=== PATIENT | female | born 1995 | race Caucasian/White ===

== ENCOUNTER 2018-05-25 07:49 | Inpatient (IN) | payer OTHER ==
[2018-05-25] MEDS: NS 1,000 ML IV ×3 (09:00→20:47)
[2018-05-25 09:03] LABS: BASO # 0.1 10^3/uL (0.0-0.2); BASO % 1.3 % (0.0-1.0); EOS # 0.1 10^3/uL (0.0-0.50); EOS % 2.5 % (0.0-3.0); HEMATOCRIT 40.3 % (36.0-47.0); HEMOGLOBIN 13.4 g/dl (12.0-15.5); IMMATURE GRANULOCYTE % 0.4 % (0-3.0); LYMPH # 1.7 10^3/uL (1.5-6.5); LYMPH % 32.9 % (24.0-44.0); MEAN CORPUSCULAR HEMOGLOBIN 30.9 pg (27.0-33.0); MEAN CORPUSCULAR HGB CONC 33.3 g/dl (32.0-36.5); MEAN CORPUSCULAR VOLUME 93.1 fl (80.0-96.0); MONO # 0.3 10^3/uL (0.0-0.8); MONO % 6.1 % (0.0-5.0); NEUTROPHILS % 56.8 % (36.0-66.0); PLATELET COUNT, AUTOMATED 238 10^3/uL (150-450); RED BLOOD COUNT 4.33 10^6/uL (4.00-5.40); RED CELL DISTRIBUTION WIDTH 12.7 % (11.5-14.5); WHITE BLOOD COUNT 5.2 10^3/uL (4.0-10.0)
[2018-05-25 09:12] LABS: CPK CREATINE PHOSPHOKINASE 126 U/L (26-192); MB/CK RELATIVE INDEX 0.95 (< OR =4); TROPONIN I < 0.02 NG/ML (< 0.10)
[2018-05-25 09:19] LABS: CONTROL LINE HCG INT CTR LINE PRESENT; HCG, SERUM QUALITATIVE NEGATIVE (NEGATIVE)
[2018-05-25 09:50] LABS: ALBUMIN 4.6 GM/DL (3.2-5.2); ALBUMIN/GLOBULIN RATIO 1.39 (1.00-1.93); ALKALINE PHOSPHATASE 71 U/L (45-117); ALT/SGPT 23 U/L (12-78); ANION GAP 8 MEQ/L (8-16); AST/SGOT 18 U/L (7-37); BILIRUBIN,DIRECT 0.1 MG/DL (0.0-0.2); BILIRUBIN,TOTAL 0.5 MG/DL (0.2-1.0); BLOOD UREA NITROGEN 22 MG/DL (7-18); CALCIUM LEVEL 8.8 MG/DL (8.5-10.1); CARBON DIOXIDE LEVEL 24 MEQ/L (21-32); CHLORIDE LEVEL 107 MEQ/L (98-107); GLOMERULAR FILTRATION RATE 58.8 (>60); GLUCOSE, FASTING 81 MG/DL (70-100); LIPASE 191 U/L (73-393); MAGNESIUM LEVEL 2.3 MG/DL (1.8-2.4); POTASSIUM SERUM 3.8 MEQ/L (3.5-5.1); SODIUM LEVEL 139 MEQ/L (136-145); TOTAL PROTEIN 7.9 GM/DL (6.4-8.2)
[2018-05-25 10:12] LABS: KETONE, URINE AUTO RFX NEGATIVE (NEGATIVE); MUCUS, URINE RFX SMALL (NEGATIVE); NITRITE, URINE AUTO RFX NEGATIVE (NEGATIVE); RBC, URINE AUTO RFX 0 /HPF (0-3); SPECIFIC GRAVITY UR AUTO RFX 1.023 (1.002-1.035); SQUAM EPITHELIAL CELL UR AURFX 7 /HPF (0-6)
[2018-05-25] MEDS ORDERED: GLUCOSE 4 GM CHEW TABLET PO (10:15)
[2018-05-25] MEDS ORDERED: GLUCAGON FOR INJ 1 MG VIAL (J1610) SC (10:15)
[2018-05-25] MEDS ORDERED: DEXTROSE 50% 50 ML SYRINGE IV (10:15)
[2018-05-25 10:16] LABS: D-DIMER QUANT < 270 ng/ml (<500)
[2018-05-25 10:55] LABS: AMPHETAMINES LEVEL URINE POSITIVE (NEGATIVE); BARBITURATES URINE NEGATIVE (NEGATIVE); BENZODIAZEPINES URINE NEGATIVE (NEGATIVE); CANNABINOIDS URINE NEGATIVE (NEGATIVE); COCAINE METABOLITE URINE NEGATIVE (NEGATIVE); METHADONE URINE NEGATIVE (NEGATIVE); OPIATES URINE NEGATIVE (NEGATIVE); PHENCYCLIDINE URINE NEGATIVE (NEGATIVE)
[2018-05-25] MEDS ORDERED: ISOVUE-370 76% 100ML VIAL (Q9967) As Ordered (10:56)
[2018-05-25 11:10] LABS: PROTHROMBIN TIME 13.3 SECONDS (12.1-14.4)
[2018-05-25 11:11] LABS: PARTIAL THROMBOPLASTIN TIME 27.8 SECONDS (25.4-37.6)
[2018-05-25 11:14] LABS: LEUKOCYTE ESTERASE UR AUTO RFX 2+ (NEGATIVE); WBC, URINE AUTO RFX 18 /HPF (0-3)
[2018-05-25] MEDS: GI COCKTAIL 50ML BTL(HYOSCYAMINE/MAALOX/LIDOCAINE VISCOUS)(1:3:1) PO (11:59)
[2018-05-25] MEDS: D5W/0.45% SODIUM CHLORIDE 1,000 ML IV (13:09)
[2018-05-25 16:47] LABS: CK-MB VALUE MASS < 1.0 NG/ML (<3.6); CPK CREATINE PHOSPHOKINASE 89 U/L (26-192); MB/CK RELATIVE INDEX 1.12 (< OR =4); TROPONIN I < 0.02 NG/ML (< 0.10)
[2018-05-25] MEDS: ONDANSETRON 4MG/2ML VIAL (J2405) IV (20:12)
[2018-05-25] MEDS: ACETAMINOPHEN TAB 650MG DOSE (2X325MG) PO (21:08)
[2018-05-26 00:11] LABS: CK-MB VALUE MASS < 1.0 NG/ML (<3.6); CPK CREATINE PHOSPHOKINASE 74 U/L (26-192); MB/CK RELATIVE INDEX 1.35 (< OR =4); TROPONIN I < 0.02 NG/ML (< 0.10)
[2018-05-26] MEDS: NS 1,000 ML IV (05:12)
[2018-05-26] MEDS ORDERED: COSYNTROPIN 0.25 MG/ML VIAL (J0834 PER 0.25MG) IV (06:00)
[2018-05-26 06:51] LABS: BASO % 0.8 % (0.0-1.0); EOS # 0.1 10^3/uL (0.0-0.50); EOS % 3.9 % (0.0-3.0); HEMATOCRIT 33.1 % (36.0-47.0); LYMPH % 55.2 % (24.0-44.0); MEAN CORPUSCULAR HEMOGLOBIN 30.5 pg (27.0-33.0); MEAN CORPUSCULAR HGB CONC 31.7 g/dl (32.0-36.5); MEAN CORPUSCULAR VOLUME 96.2 fl (80.0-96.0); MONO # 0.2 10^3/uL (0.0-0.8); MONO % 5.1 % (0.0-5.0); NEUTROPHILS # 1.2 10^3/uL (1.8-7.7); PLATELET COUNT, AUTOMATED 174 10^3/uL (150-450); RED BLOOD COUNT 3.44 10^6/uL (4.00-5.40); WHITE BLOOD COUNT 3.6 10^3/uL (4.0-10.0)
[2018-05-26 07:05] LABS: HEMOGLOBIN 10.5 g/dl (12.0-15.5)
[2018-05-26 07:14] LABS: ANION GAP 5 MEQ/L (8-16); BLOOD UREA NITROGEN 17 MG/DL (7-18); CALCIUM LEVEL 7.4 MG/DL (8.5-10.1); CARBON DIOXIDE LEVEL 24 MEQ/L (21-32); CHLORIDE LEVEL 118 MEQ/L (98-107); CREATININE FOR GFR 0.97 MG/DL (0.55-1.30); GLOMERULAR FILTRATION RATE > 60.0 (>60); GLUCOSE, FASTING 81 MG/DL (70-100); MAGNESIUM LEVEL 1.9 MG/DL (1.8-2.4); POTASSIUM SERUM 4.6 MEQ/L (3.5-5.1); SODIUM LEVEL 147 MEQ/L (136-145)
[2018-05-26 07:21] LABS: CK-MB VALUE MASS < 1.0 NG/ML (<3.6); CPK CREATINE PHOSPHOKINASE 71 U/L (26-192); MB/CK RELATIVE INDEX 1.41 (< OR =4); TROPONIN I < 0.02 NG/ML (< 0.10)
[2018-05-26] MEDS ORDERED: IPRATROPIUM 0.5MG/ALBUTEROL 2.5MG INH SOL UD 3ML (DUONEB)(J7620) NEB (09:15)
[2018-05-26] MEDS: SIMETHICONE 80 MG CHEW TAB PO (09:29)
[2018-05-26] MEDS: MONTELUKAST 10 MG TAB PO (09:29)
[2018-05-26] MEDS: ACETAMINOPHEN TAB 650MG DOSE (2X325MG) PO (09:40)
[2018-05-26] MEDS: IPRATROPIUM 0.5MG/ALBUTEROL 2.5MG INH SOL UD 3ML (DUONEB)(J7620) NEB ×2 (11:10→15:31)
[2018-05-27] MEDS: IPRATROPIUM 0.5MG/ALBUTEROL 2.5MG INH SOL UD 3ML (DUONEB)(J7620) NEB ×2 (01:04→07:44)
[2018-05-27 07:28] LABS: BASO % 0.8 % (0.0-1.0); EOS # 0.2 10^3/uL (0.0-0.50); EOS % 3.8 % (0.0-3.0); HEMATOCRIT 34.1 % (36.0-47.0); HEMOGLOBIN 10.9 g/dl (12.0-15.5); IMMATURE GRANULOCYTE % 0.2 % (0-3.0); LYMPH # 1.6 10^3/uL (1.5-6.5); LYMPH % 31.5 % (24.0-44.0); MEAN CORPUSCULAR HEMOGLOBIN 30.7 pg (27.0-33.0); MEAN CORPUSCULAR VOLUME 96.1 fl (80.0-96.0); MONO # 0.3 10^3/uL (0.0-0.8); MONO % 5.4 % (0.0-5.0); NEUTROPHILS # 2.9 10^3/uL (1.8-7.7); NEUTROPHILS % 58.3 % (36.0-66.0); PLATELET COUNT, AUTOMATED 166 10^3/uL (150-450); RED BLOOD COUNT 3.55 10^6/uL (4.00-5.40); RED CELL DISTRIBUTION WIDTH 13.2 % (11.5-14.5)
[2018-05-27 07:47] LABS: ANION GAP 5 MEQ/L (8-16); BLOOD UREA NITROGEN 12 MG/DL (7-18); CARBON DIOXIDE LEVEL 24 MEQ/L (21-32); CHLORIDE LEVEL 113 MEQ/L (98-107); CREATININE FOR GFR 0.92 MG/DL (0.55-1.30); GLOMERULAR FILTRATION RATE > 60.0 (>60); GLUCOSE, FASTING 84 MG/DL (70-100); MAGNESIUM LEVEL 1.8 MG/DL (1.8-2.4); POTASSIUM SERUM 4.2 MEQ/L (3.5-5.1); SODIUM LEVEL 142 MEQ/L (136-145)
[2018-05-27] MEDS: MONTELUKAST 10 MG TAB PO (07:50)
[2018-05-27] MEDS: SIMETHICONE 80 MG CHEW TAB PO (07:50)
== END 2018-05-27 09:19 | disposition home or self-care (01) | DRG 312 ==
LOC: M ED 07:49 → M ED INP 10:05 → M ICU 12:07 → M MSPAV 17:23
DX: I95.2 Hypotension due to drugs (principal); I46.9 Cardiac arrest, cause unspecified; F50.00 Anorexia nervosa, unspecified; E87.0 Hyperosmolality and hypernatremia; R00.1 Bradycardia, unspecified; F41.9 Anxiety disorder, unspecified; G47.00 Insomnia, unspecified; T43.215A Adverse effect of selective serotonin and norepinephrine reuptake inhibitors, initial encounter; J45.909 Unspecified asthma, uncomplicated; F55.2 Abuse of laxatives; K59.00 Constipation, unspecified; D64.9 Anemia, unspecified; D72.819 Decreased white blood cell count, unspecified; R07.89 Other chest pain; Z79.899 Other long term (current) drug therapy

== ENCOUNTER 2018-07-01 20:08 | Emergency (ER) | payer OTHER ==
[~2018-07-01] VITALS: Ht 162.6 cm; Wt 56.8 kg
[~2018-07-01 20:08] MED LIST: ADDE10CA3 PO; BUDE180INH INH; IPRA0.00 NEB; MONT10TA2 PO; SIME80TA PO; TRAZ25TA PO
[2018-07-01] MEDS ORDERED: GI COCKTAIL 50ML BTL(HYOSCYAMINE/MAALOX/LIDOCAINE VISCOUS)(1:3:1) PO ONE (20:45)
[2018-07-01] MEDS ORDERED: ASPIRIN 81 MG CHEW TABLET PO ONE (20:45)
[2018-07-01] MEDS ORDERED: PANTOPRAZOLE 40MG INJ (PROTONIX) (C9113) IV ONE (20:45)
[2018-07-01] MEDS ORDERED: NS 1,000 ML IV ONE (20:45)
[2018-07-01 21:23] LABS: BASO # 0.1 10^3/uL (0.0-0.2); BASO % 0.9 % (0.0-1.0); EOS # 0.1 10^3/uL (0.0-0.50); EOS % 1.8 % (0.0-3.0); HEMATOCRIT 36.9 % (36.0-47.0); HEMOGLOBIN 12.2 g/dl (12.0-15.5); LYMPH # 2.8 10^3/uL (1.5-6.5); LYMPH % 40.9 % (24.0-44.0); MEAN CORPUSCULAR HEMOGLOBIN 30.7 pg (27.0-33.0); MEAN CORPUSCULAR HGB CONC 33.1 g/dl (32.0-36.5); MEAN CORPUSCULAR VOLUME 92.9 fl (80.0-96.0); MONO # 0.3 10^3/uL (0.0-0.8); MONO % 4.4 % (0.0-5.0); NEUTROPHILS # 3.5 10^3/uL (1.8-7.7); NEUTROPHILS % 51.7 % (36.0-66.0); PLATELET COUNT, AUTOMATED 311 10^3/uL (150-450); RED BLOOD COUNT 3.97 10^6/uL (4.00-5.40); WHITE BLOOD COUNT 6.8 10^3/uL (4.0-10.0)
[2018-07-01 21:51] LABS: HCG, SERUM QUALITATIVE NEGATIVE (NEGATIVE)
[2018-07-01 22:12] LABS: BLOOD UREA NITROGEN 26 MG/DL (7-18); CARBON DIOXIDE LEVEL 30 MEQ/L (21-32); CHLORIDE LEVEL 102 MEQ/L (98-107); CPK CREATINE PHOSPHOKINASE 109 U/L (26-192); CREATININE FOR GFR 0.88 MG/DL (0.55-1.30); GLOMERULAR FILTRATION RATE > 60.0 (>60); GLUCOSE, FASTING 76 MG/DL (70-100); MB/CK RELATIVE INDEX 1.01 (< OR =4); POTASSIUM SERUM 4.3 MEQ/L (3.5-5.1); SODIUM LEVEL 139 MEQ/L (136-145); THYROID STIMULATING HORMONE 0.884 uIU/ML (0.358-3.740); TROPONIN I < 0.02 NG/ML (< 0.10)
[2018-07-01] MEDS ORDERED: ISOVUE-370 76% 100ML VIAL (Q9967) As Ordered ONE (23:05)
[2018-07-01 23:14] LABS: APPEARANCE, URINE HAZY (CLEAR); BACTERIA, URINE AUTO NEGATIVE (NEGATIVE); BILIRUBIN, URINE AUTO NEGATIVE (NEGATIVE); BLOOD, URINE BLOOD NEGATIVE (NEGATIVE); COLOR, URINE YELLOW (YELLOW); GLUCOSE, URINE (UA) AUTO NEGATIVE (NEGATIVE); KETONE, URINE AUTO NEGATIVE (NEGATIVE); LEUKOCYTE ESTERASE, URINE AUTO NEGATIVE (NEGATIVE); NITRITE, URINE AUTO NEGATIVE (NEGATIVE); PROTEIN, URINE AUTO NEGATIVE (NEGATIVE); RBC, URINE AUTO 1 /HPF (0-3); SPECIFIC GRAVITY URINE AUTO 1.015 (1.002-1.035); SQUAMOUS EPITHELIAL CELL UR AU 2 /HPF (0-6); UROBILINOGEN, URINE AUTO 0.2 mg/dL (0.0-2.0); WBC, URINE AUTO 1 /HPF (0-3)
[2018-07-01 23:37] LABS: AMPHETAMINES LEVEL URINE NEGATIVE (NEGATIVE); BARBITURATES URINE NEGATIVE (NEGATIVE); BENZODIAZEPINES URINE NEGATIVE (NEGATIVE); CANNABINOIDS URINE NEGATIVE (NEGATIVE); COCAINE METABOLITE URINE NEGATIVE (NEGATIVE); METHADONE URINE NEGATIVE (NEGATIVE); OPIATES URINE NEGATIVE (NEGATIVE); PHENCYCLIDINE URINE NEGATIVE (NEGATIVE)
--- NOTE | 2018-07-01 23:47 | REPVR ---
EXAM: CT Angiography Chest With Contrast EXAM DATE/TIME: 07/01/2018 10:59 PM CLINICAL HISTORY: 22 years old, female; Pain; Chest pain; Type not specified; Additional info: Chest tightness, low spo2 TECHNIQUE: Axial computed tomographic angiography images of the chest with intravenous contrast using CT angiography protocol. All CT scans at this facility use at least one of these dose optimization techniques: automated exposure control; mA and/or kV adjustment per patient size (includes targeted exams where dose is matched to clinical indication); or iterative reconstruction. Coronal and sagittal reformatted images were created and reviewed. MIP reconstructed images were created and reviewed. CONTRAST: 75 ml of iso administered intravenously. COMPARISON: CT Chest with contrast 05/25/2018 11:07 AM FINDINGS: Pulmonary arteries: There is opacification of the pulmonary arteries with no evidence of pulmonary embolus. Aorta: There is opacification of the aorta which appears intact. Lungs: Clear lungs. Pleural space: Normal. No pneumothorax. No pleural effusion. Heart: There is no evidence of pericardial effusion. Lymph nodes: Small lymph nodes in the right perihilar region. Bones/joints: No evidence of bony abnormality Soft tissues: Unremarkable. IMPRESSION: 1. No evidence of pulmonary embolus. 2. Enlarged lymph nodes in the right hilum and recommend followup CT in 5 months to document stability. Electronically signed by: Nas Vera On 07/01/2018 23:46:57 PM
[2018-07-02 00:30] VITALS: BP 106/69
--- NOTE | 2018-07-02 01:10 | REP ---
Clinical: Acute chest pain . Comparison: 05/25/2018 . Technique: PA and lateral. Findings: The mediastinum and cardiac silhouette are normal. The lung bolanos are clear and without acute consolidation, effusion, or pneumothorax. The skeletal structures are intact and normal. Impression: 1. No acute cardiopulmonary process. Electronically Signed by Tr Madrigal MD 07/02/2018 01:01 A
--- NOTE | 2018-07-02 09:01 | ED PDOC ---
Post-Departure Follow-Up ft krzysztof faxed formal report of cta for fu Antonia Cronin MD Jul 02, 2018 09:01
--- NOTE | 2018-07-04 06:36 | ECGEPIP ---
Stationary ECG Study [facility] - ED Test Date: 2018-07-01 Pat Name: LUIS FERNANDO CHANG Department: Room: - Gender: F Rn Admission: gt : 1995 Requested By: RUPERTO Gamboa PA-C Order Number: [id number] Reading MD: Antonia Salmeron Measurements Intervals [place] Rate: 59 P: 59 OK: 123 QRS: 42 QRSD: 85 T: 40 QT: 409 QTc: 407 Interpretive Statements SINUS BRADYCARDIA SHORTER OK INTERVAL CW 05/26/18 RATE INCREASED Electronically Signed On 07-04-2018 6:35:51 EST by Antonia Salmeron
== END 2018-07-02 00:42 | disposition home or self-care (01) ==
LOC: M ED 20:08
DX: R07.89 Other chest pain (principal); R42 Dizziness and giddiness; R00.1 Bradycardia, unspecified; R06.00 Dyspnea, unspecified; J45.909 Unspecified asthma, uncomplicated; R63.0 Anorexia; R59.9 Enlarged lymph nodes, unspecified; Z88.8 Allergy status to other drugs, medicaments and biological substances
CPT/HCPCS: 71046; 71275; 80048; 80307; 81001; 82550; 82553; 84443; 84484; 84703; 85025; 93005; 93041; 94760; 96374; 99285; C9113; Q9967

== ENCOUNTER 2019-02-01 20:52 | Emergency (ER) | payer OTHER ==
[~2019-02-01] VITALS: Ht 162.6 cm; Wt 63.6 kg
[~2019-02-01 20:52] MED LIST changes: +TRAZ1TAB11 PO; -TRAZ25TA PO
[2019-02-01] MEDS ORDERED: MULTTAB20 PO (20:59)
[2019-02-01] MEDS ORDERED: PROP10TA56 PO (20:59)
[2019-02-01 21:50] LABS: BASO # 0.1 10^3/uL (0.0-0.2); BASO % 0.9 % (0.0-1.0); EOS # 0.2 10^3/uL (0.0-0.50); EOS % 2.1 % (0.0-3.0); HEMATOCRIT 36.5 % (36.0-47.0); HEMOGLOBIN 12.5 g/dl (12.0-15.5); LYMPH # 2.5 10^3/uL (1.5-6.5); LYMPH % 31.7 % (24.0-44.0); MEAN CORPUSCULAR HEMOGLOBIN 32.3 pg (27.0-33.0); MEAN CORPUSCULAR HGB CONC 34.2 g/dl (32.0-36.5); MEAN CORPUSCULAR VOLUME 94.3 fl (80.0-96.0); MONO # 0.4 10^3/uL (0.0-0.8); MONO % 5.4 % (0.0-5.0); NEUTROPHILS # 4.7 10^3/uL (1.8-7.7); NEUTROPHILS % 59.6 % (36.0-66.0); PLATELET COUNT, AUTOMATED 255 10^3/uL (150-450); RED BLOOD COUNT 3.87 10^6/uL (4.00-5.40); WHITE BLOOD COUNT 7.9 10^3/uL (4.0-10.0)
[2019-02-01 22:32] LABS: ALBUMIN 3.7 GM/DL (3.2-5.2); ALT/SGPT 17 U/L (12-78); BILIRUBIN,TOTAL 0.2 MG/DL (0.2-1.0); BLOOD UREA NITROGEN 15 MG/DL (7-18); CALCIUM LEVEL 8.9 MG/DL (8.5-10.1); CARBON DIOXIDE LEVEL 25 MEQ/L (21-32); CHLORIDE LEVEL 108 MEQ/L (98-107); GLOMERULAR FILTRATION RATE > 60.0 (>60); GLUCOSE, FASTING 85 MG/DL (70-100); HCG, SERUM QUANTITATIVE 2124 MIU/ML; POTASSIUM SERUM 4.2 MEQ/L (3.5-5.1); SODIUM LEVEL 140 MEQ/L (136-145)
[2019-02-02] MEDS ORDERED: NS 1,000 ML IV ONE (00:30)
[2019-02-02] MEDS ORDERED: METOCLOPRAMIDE INJ 10MG/2ML VIAL (J2765) IV ONE (01:00)
[2019-02-02 02:08] VITALS: BP 101/59
[2019-02-02] MEDS ORDERED: MIRA3350 PO (02:11)
== END 2019-02-02 02:20 | disposition home or self-care (01) ==
LOC: M ED 20:52
DX: O21.9 Vomiting of pregnancy, unspecified (principal); Z3A.01 Less than 8 weeks gestation of pregnancy; Z88.5 Allergy status to narcotic agent; Z79.899 Other long term (current) drug therapy
CPT/HCPCS: 80053; 81001; 84702; 85025; 87086; 96374; 99284; J2765